=== PATIENT | male | born 1965 | race Caucasian/White ===

== ENCOUNTER 2017-10-02 20:26 | Emergency (ER) | payer BC ==
[2017-10-02 20:37] VITALS: BP 141/103
--- NOTE | 2017-10-02 20:58 | UC ---
Epistaxis Nasal HPI - HPI Summary HPI Summary: Patient is a 52-year-old male presenting today UC after sustaining an injury to the nose from a metal bar approximately 20 minutes prior to arrival. Bleeding is well controlled on arrival. Daughter endorses deformity of the nose and there is slight ecchymosis to the bilateral bridge. Denies any visual changes. Denies any difficulty breathing through the bilateral nares or shortness of breath. Otherwise healthy. Denies any blood thinners. - History of Current Complaint Chief Complaint: UCHeadInjury Stated Complaint: FACIAL INJURY Time Seen by Provider: 10/02/17 20:40 Hx Obtained From: Patient Onset/Duration: Sudden Onset, Lasting Hours Severity Initially: Moderate Severity Currently: Moderate Pain Intensity: 4 Pain Scale Used: 0-10 Numeric Aggravating Factor(s): Nasal Trauma Associated Signs And Symptoms: Positive: Negative - Allergies/Home Medications Allergies/Adverse Reactions: Allergies Allergy/AdvReac Type Severity Reaction Status Date / Time No Known Allergies Allergy Verified 10/02/17 20:30 Home Medications: Home Medications Omeprazole CAP* [Prilosec CAP* 20 MG] 20 mg PO DAILY 10/02/17 [History Confirmed 10/02/17] PMH/Surg Hx/FS Hx/Imm Hx Previously Healthy: Yes - Surgical History Surgical History: None - Family History Known Family History: Positive: Unknown - Social History Occupation: Employed Full-time Lives: With Family Alcohol Use: Rare Substance Use Type: None Smoking Status (MU): Never Smoked Tobacco Review of Systems Constitutional: Negative Skin: Negative Eyes: Negative ENT: Other - nasal bone pressure/ pain - since resolved on arrival Respiratory: Negative Cardiovascular: Negative Motor: Negative Neurovascular: Negative Neurological: Negative Is Patient Immunocompromised?: No All Other Systems Reviewed And Are Negative: Yes Physical Exam Triage Information Reviewed: Yes Appearance: Well-Appearing, Well-Nourished Vital Signs: Initial Vital Signs Temp 98.2 F 10/02/17 20:32 Pulse 71 10/02/17 20:32 Resp 18 10/02/17 20:32 BP 141/103 10/02/17 20:32 Pulse Ox 96 10/02/17 20:32 Vital Signs Reviewed: Yes Eye Exam: Normal Eyes: Positive: Conjunctiva Clear ENT Exam: Normal ENT: Positive: Other - nasal bone tenderness Neck exam: Normal Neck: Positive: Supple, No Lymphadenopathy Respiratory Exam: Normal Respiratory: Positive: Chest non-tender, Lungs clear Cardiovascular Exam: Normal Cardiovascular: Positive: RRR Musculoskeletal Exam: Normal Musculoskeletal: Positive: Strength Intact Neurological: Positive: Alert, Muscle Tone Normal Psychological: Positive: Normal Response To Family Skin Exam: Normal Epistaxis Nasal Course/Dx - Course Course Of Treatment: Patient is evaluated for trauma to the nose. CT maxillofacial obtained. Denies pain at this time. Bleeding is controlled on arrival. R anterior nasal bone fracture. Patient states he is okay to take Tylenol and ibuprofen for discomfort. He will follow up with ENT early next week and will call tomorrow morning for an appointment. - Differential Dx/Diagnosis Differential Diagnosis/HQI/PQRI: Trauma Provider Diagnoses: Nasal Fracture Discharge - Sign-Out/Discharge Documenting (check all that apply): Discharge - Discharge Plan Condition: Stable Disposition: HOME Patient Education Materials: Nasal Fracture (ED) Referrals: Blaise Martin MD [Medical Doctor] - Anna Sepulveda MD [Primary Care Provider] - Additional Instructions: Please follow up with ENT - Call tomorrow for an appt Ibuprofen and Tylenol for any discomfort If you develop any difficultly breathing - you need to go to the ED or return to the - Billing Disposition and Condition Condition: STABLE Disposition: HOME
--- NOTE | 2017-10-02 21:05 | RAD ---
INDICATION: Injury to nose COMPARISON: None TECHNIQUE: Axial source images were acquired from the vertex of the mandible through the orbits. Coronal and sagittal reconstructed images were acquired. FINDINGS: Bones: There is a mildly displaced fracture of the anterior right nasal bone. The nasal process of the maxilla is intact. There is no other facial bone fracture. Orbits: The globes and intraconal structures appear intact. The optic nerves are symmetric. Extraocular muscles appear normal. There is no intraconal inflammatory change or retrobulbar mass.. Paranasal sinuses: There is minor focal mucosal thickening involving both maxillary antra The remaining paranasal sinuses are clear. Brain: There are no acute abnormalities of the visualized brain parenchyma. Soft tissues: Mild soft tissue swelling about the anterior nasal bone fracture site. Other: None The visualized soft tissue elements about the neck appear normal. IMPRESSION: FRACTURE OF THE ANTERIOR RIGHT NASAL BONE. MILD SINUSITIS.
== END 2017-10-02 21:12 | disposition home or self-care (01) ==
LOC: UCEAST 20:26
DX: S02.2XXA Fracture of nasal bones, initial encounter for closed fracture (principal); W20.8XXA Other cause of strike by thrown, projected or falling object, initial encounter; Y93.9 Activity, unspecified; Y92.9 Unspecified place or not applicable
CPT/HCPCS: 70486; 99211; G0463

== ENCOUNTER 2019-03-27 11:51 | Emergency (ER) | payer BC ==
[2019-03-27 13:55] VITALS: BP 149/96
--- NOTE | 2019-03-27 14:18 | UC ---
Lower Extremity/Ankle HPI - HPI Summary HPI Summary: rolled left ankle yesterday while running----has been able to wb but is painful- --lateral left ankle pain - History of Current Complaint Chief Complaint: UCLowerExtremity Stated Complaint: L ANKLE INJ Time Seen by Provider: 03/27/19 14:12 Hx Obtained From: Patient Onset/Duration: Sudden Onset, Lasting Days - 1, Still Present Pain Intensity: 5 Pain Scale Used: 0-10 Numeric Aggravating Factor(s): Standing Alleviating Factor(s): Rest, Elevation Able to Bear Weight: Yes - with pain - Allergies/Home Medications Allergies/Adverse Reactions: Allergies Allergy/AdvReac Type Severity Reaction Status Date / Time No Known Allergies Allergy Verified 03/27/19 13:53 PMH/Surg Hx/FS Hx/Imm Hx Previously Healthy: Yes - Surgical History Surgical History: Yes Surgery Procedure, Year, and Place: colonoscopy - Family History Known Family History: Positive: Unknown - Social History Occupation: Employed Full-time Lives: With Family Alcohol Use: Rare Substance Use Type: None Smoking Status (MU): Never Smoked Tobacco Review of Systems All Other Systems Reviewed And Are Negative: Yes Constitutional: Positive: Negative Skin: Positive: Negative Eyes: Positive: Negative ENT: Positive: Negative Respiratory: Positive: Negative Cardiovascular: Positive: Negative Gastrointestinal: Positive: Negative Genitourinary: Positive: Negative Motor: Positive: Negative Neurovascular: Positive: Negative Musculoskeletal: Positive: Arthralgia - lateral left ankle pain Neurological: Positive: Negative Psychological: Positive: Negative Is Patient Immunocompromised?: No Physical Exam Triage Information Reviewed: Yes Appearance: Well-Appearing, No Pain Distress, Well-Nourished Vital Signs: Initial Vital Signs Temp 97.9 F 03/27/19 13:51 Pulse 63 03/27/19 13:51 Resp 18 03/27/19 13:51 BP 149/96 03/27/19 13:51 Pulse Ox 97 03/27/19 13:51 Vital Signs Reviewed: Yes Eye Exam: Normal Eyes: Positive: Conjunctiva Clear ENT Exam: Normal ENT: Positive: Normal ENT inspection, Hearing grossly normal. Negative: Trismus , Muffled voice, Hoarse voice Dental Exam: Normal Neck exam: Normal Neck: Positive: Supple, Nontender Respiratory Exam: Normal Respiratory: Positive: Chest non-tender, No respiratory distress, No accessory muscle use Cardiovascular Exam: Normal Cardiovascular: Positive: RRR, Pulses Normal, Brisk Capillary Refill Musculoskeletal Exam: Other Musculoskeletal: Positive: No Edema, Strength Limited @ - pain left ankle, ROM Limited @ - pain left ankle Neurological Exam: Normal Neurological: Positive: Alert, Muscle Tone Normal Psychological Exam: Normal Skin Exam: Normal Diagnostics - Radiology No standard instances Radiology Interpretation Completed By: Radiologist - no fracture Lower Extremity Course/Dx - Course Course Of Treatment: patient has a gel splint---will rice, ibuprofen for pain and follow with Dr. grimaldo this week - Differential Dx/Diagnosis Provider Diagnosis: Left ankle sprain, Hypertension Discharge ED - Sign-Out/Discharge Documenting (check all that apply): Patient Departure All imaging exams completed and their final reports reviewed: Yes - Discharge Plan Condition: Stable Disposition: HOME Patient Education Materials: Ibuprofen (By mouth), Ankle Sprain (ED), R.I.C.E. Treatment (ED) Referrals: Rock Umaña [Medical Doctor] - Anna Sepulveda MD [Primary Care Provider] - - Billing Disposition and Condition Condition: STABLE Disposition: Home - Attestation Statements Provider Attestation: I was available for consult. This patient was seen by the MAIKOL. The patient was not presented to, seen by, or examined by me. Juno Hirsch MD
== END 2019-03-27 14:48 | disposition home or self-care (01) ==
LOC: UCEAST 11:51
DX: S93.402A Sprain of unspecified ligament of left ankle, initial encounter (principal); X50.1XXA Overexertion from prolonged static or awkward postures, initial encounter; Y93.02 Activity, running; Y92.9 Unspecified place or not applicable; I10 Essential (primary) hypertension
CPT/HCPCS: 99211; G0463